=== PATIENT | male | born 1950 | race Caucasian/White ===

== ENCOUNTER → 2022-02-11 12:04 | Outpatient (CLI) | payer MEDICARE, SELFPAY ==
[2022-02-11 14:00] LABS: Add Manual Diff / Slide Review NO; Basophils Absolute Auto 0 /uL (0-100); Basophils Percent Auto 0.5 % (0-2); Eosinophils Absolute Auto 100 /uL (0-450); Eosinophils Percent Auto 1.5 % (2-4); Hematocrit 31.7 % (41-53); Hemoglobin 10.8 g/dL (13.5-17.5); Lymphocytes Absolute Auto 800 /uL (1100-4500); Lymphocytes Percent Auto 17.6 % (25-40); Mean Corpuscular HGB Conc 33.9 % (30-36); Mean Corpuscular Hemoglobin 34.7 PG (26-34); Mean Corpuscular Volume 102.3 fL (80-100); Monocytes Absolute Auto 400 /uL (0-900); Monocytes Percent Auto 7.9 % (3-14); Neutrophils Absolute Auto 3400 /uL (1500-7000); Neutrophils Percent Auto 72.5 % (50-75); Platelet Count 229 X10^3/uL (150-400); Red Cell Distribution Width 13.8 % (11.6-14.8); White Blood Cell Count 4.7 X10^3/uL (4.5-11.0)
[2022-02-11 14:56] LABS: BUN Creatinine Ratio 17.9 (6-22); Blood Urea Nitrogen 42 mg/dL (9-20); Calcium 10.1 mg/dL (8.4-10.2); Carbon Dioxide 22 mmol/L (22-32); Chloride 106 mmol/L (98-107); Estimated Glomerular Filt Rate 29 mL/min (>60); Glucose 92 mg/dL (80-110); HEMOLYSIS < 15 (0-50); Sodium 137 mmol/L (137-145)
== END ==
PROVIDERS: Referring Provider Orthopaedic Surgery Orthopaedic Surgery of the Spine; Visit Provider Orthopaedic Surgery Orthopaedic Surgery of the Spine
DX: Z01.818 Encounter for other preprocedural examination (principal); Z01.812 Encounter for preprocedural laboratory examination
CPT/HCPCS: 36415; 80048; 85025; 93005; 93010

== ENCOUNTER → 2022-03-05 10:15 | Outpatient (CLI) | payer OTHER, SELFPAY ==
[2022-03-05 11:37] LABS: COVID19 -Nasal RAPID Negative (Negative)
== END ==
PROVIDERS: Referring Provider Orthopaedic Surgery Orthopaedic Surgery of the Spine; Visit Provider Orthopaedic Surgery Orthopaedic Surgery of the Spine
DX: Z20.822 Contact with and (suspected) exposure to COVID-19 (principal)
CPT/HCPCS: 87635; C9803

== ENCOUNTER 2022-03-06 12:17 | Inpatient (IN) | payer OTHER, SELFPAY ==
[2022-02-25 09:22] VITALS: BMI 26.4
[2022-03-06] VITALS (10 sets, daily range): BP systolic 142–176; BP diastolic 68–85; PULSE 73–104; RESP 12–18; TEMP 35.7–37.6; O2SAT 95–99; BMI 26.4
--- NOTE | 2022-03-06 12:47 | PM.PREOP ---
Pre-operative Note COVID-19 COVID-19 status: Negative Result date/Date tested (Pos, Neg/Pending): 03/05/22 Criteria for continued procedure: Expected advancement of disease process, Possibility delay results in more complex future surgery or treatment, Increased loss of function, Continuing or worsening of significant or severe pain, Deterioration of the patient's condition or overall health, Delay expected to result in less-positive ultimate med/surg outcome and Untreated could increase risk of COVID contraction/morbidity/mortality Interval Note History & Physical reviewed/Exam performed by Physician: Yes Changes to H&P: No
[2022-03-06] MEDS: LACTATED RINGERS 1,000 ML 42 ML IV ×2 (13:03→14:40)
[2022-03-06] MEDS: CEFAZOLIN 2 GM/100 ML PREMIX 100 ML IV ×2 (13:32→20:06)
--- NOTE | 2022-03-06 14:06 | SUR.OPER ---
Prone on spine table, head in foam head support, padded chest and pelvic supports, gel pad at knees, lower legs supported by pillows; nipples, genitalia and toes free of pressure, arms secured on foam padded arm boards at <90 degrees abduction. Tape over blanket at thigh secured to table.
[2022-03-06] MEDS: BUPIVACAINE LIPOSOME 266 MG/20 ML VIAL INJ (14:13)
[2022-03-06] MEDS: BUPIVACAINE 0.5% W/ EPI (PF) 30 ML VIAL INJ (14:14)
--- NOTE | 2022-03-06 15:54 | DI.RAD.S_ITS ---
PROCEDURE: XR LUMBAR SPINE 2-3V INDICATIONS: L4-5 TLIF TECHNIQUE: Fluoroscopic images were obtained during an operative procedure and submitted for interpretation following the completion of the procedure. COMPARISON: [facility], CR, XR LUMBAR SPINE WITH OBLIQUES PLUS FLEXION EXTENSION, 07/03/2021, 14:56. [facility], MR, MR LUMBAR SPINE WITHOUT CONTRAST, 10/29/2021, 10:11. FINDINGS: These fluoroscopic images were performed for intraoperative localization. On these images, bilateral pedicle screws are seen at L4 and L5, with vertical fixation rods. The screws appear well placed. There is a disc spacer seen at L4-L5. Please correlate with intraoperative findings. IMPRESSION: Normal intraoperative examination. Dictated by: Sher Rice M.D. on 03/06/2022 at 15:42 Approved by: Sher Rice M.D. on 03/06/2022 at 15:43
--- NOTE | 2022-03-06 15:58 | PM.OP.1 ---
Operative Date/Time/Diagnoses Date of procedure: 03/06/22 Time of procedure: 13:00 Pre-op diagnosis: 1. L4-5 spinal stenosis with neurogenic claudication 2. Lumbar disc extrusion Post-op diagnosis: same Procedure & Clinicians Procedure: 1. L4-5 Postero-lateral and posterior interbody fusion 2. L4-5 interbody cage placement. 3. L4-5 decompressive laminectomy with bilateral facetecomies 4. L4-5 Posterior non-segmental instrumentation 5. [place] of bone marrow from iliac crest 6. Utilization of microsurgical technique and operating microscope Same procedure as scheduled: Yes Indications: Patient has been having chronic back pain and worsening lumbar radiculopathy. Patient failed multiple conservative management with worsening pain weakness and numbness in her lower extremity. Patient has been having difficulty performing activity of daily living. After discussing risks benefits of treatment options, patient elected proceed with surgery. Surgeon: Ashley Gallegos Lathe Puller: Cyndy Montgomery Click Yes if Unassisted: No Anesthesia Type: General Operative Notes Closure Type: primary Specimen(s): none sent Prosthetic devices, grafts, tissues, transplants, or devices: Globus revolve screws, Rise cage Estimated Blood Loss (mL): 50 Blood products transfused: none Procedure in detail: Patient was seen in the preoperative area. Risks and benefits of the surgery was discussed with the patient. Informed consent was obtained from the patient and placed in the chart. Surgical site was marked. Patient was taken to the operative room. General anesthesia was administered. Prophylactic antibiotic was given to the patient less than 30 min before the incision was made. Patient was placed into a prone position on the Dajuan table. Patient's back was then prepped and draped in the sterile fashion. Time-out was performed at this time. Using AP and lateral C-arm imaging the interval between L4-5 was identified and marked on patient's back. A 2 inch incision 2 in from midline was made on the right side first. The fascia was incised in line with skin incision. Globus MARS retractors was placed inside the incision and docked onto the L4 lamina. Using microsurgical technique and operating microscope, a L4 laminectomy and L4-5 facetectomy was performed using a Kerrison rongeur. The disc space at L4-5 was identified. And a total diskectomy was performed at L4-5 level. The endplates were decorticated using a rasp and shaver. The total diskectomy and decortication was performed at L4-5 level in order to to accomplish a L4-5 fusion. The local bone from the laminectomy and facetectomy was saved for local bone grafting. After the total diskectomy and decortication was completed, Trifecta bone graft material was combined with local bone that was harvested earlier. At this time, a separate skin is incision was made over the iliac crest. A Jamshidi needle was inserted into the iliac crest through a separate skin incision. 5 cc of bone marrow aspiration was obtained through the separate skin incision using a Jamshidi needle from the iliac crest. The bone marrow aspiration was combined with local bone and the Trifecta bone grafting material. The bone grafting material was placed into the L4-5 interbody space along with a expandable cage. The cage was expanded to its maximum height using the torque limiting screwdriver. At this time a mirror image incision was made on the left side. The fascia was incised in line with the skin incision. Globus MARS retractor was inserted and docked onto the L4-5 posterolateral gutter. Using the power drill, posterior-lateral decortication was performed at L4-5 level until bleeding cortical bone was identified. The remaining bone grafting material was placed into the L4-5 posterior lateral gutter he order to accomplish posterolateral fusion at the L4-5 level. A laminectomy facetectomy was also performed from the left side for additional decompression. The epidural space and bilateral neural foramen was fully decompressed at the L4-5 level after the procedure is completed. Using the double C-arm technique, pedicle screws were placed into the L4-5 pedicles bilaterally. This was done by placing the Jamshidi needle into the pedicles, then placing the guidewires over the Jamshidi needle, and finally placing the cannulated screws over the guidewires bilaterally. After the pedicle screws were placed, 2 titanium rods was locked into the heads of the pedicle screws using locking caps and torque limiting screwdriver. After all the hardware was placed, and confirmed with AP and lateral C-arm imaging, the wound was then irrigated with sterile normal saline and packed with Ray-Massiel gauze for 3 min to accomplish hemostasis. After the gauze was removed the deep fascia was closed with #1 Vicryl suture. The subcutaneous layer was closed with 2-0 Vicryl. The skin was closed with skin nathanael. Patient tolerated the procedure well. There were no complications. Complications: none Post-operative Condition: stable Disposition: PACU Plan for aftercare: Admit to inpatient hospital
[2022-03-06] MEDS: ACETAMINOPHEN 325 MG TABLET 650 MG PO (16:54)
[2022-03-06] MEDS: HYDROMORPHONE 0.5 MG INJ IV ×2 (16:54→20:07)
[2022-03-06] MEDS: hydrOXYzine pamoate 25 MG CAPSULE PO (16:55)
[2022-03-06] MEDS: DOCUSATE 100 MG CAPSULE PO (20:07)
[2022-03-06] MEDS: SENNOSIDES 8.6 MG TABLET 17.2 MG PO (20:07)
[2022-03-06] MEDS: OXYCODONE IR 5 MG TABLET 10 MG PO (23:39)
[2022-03-07] MEDS: OXYCODONE IR 5 MG TABLET 10 MG PO ×5 (02:53→20:12)
[2022-03-07 02:58] VITALS: BP 154/78; PULSE 93; RESP 17; TEMP 37.2; O2SAT 93
--- NOTE | 2022-03-07 04:16 | PC.NURSE ---
Pt is AxOx4, needs 1 person assistance and cooperative. VSS, pt c/o pain on his back and recieved PRN Dilaudid 0.5mg IV with good effect. Pt also recieved PRN Oxy 10mg x1 with good effect. Pt is voiding well and clear, yellow urine output. Drssing on his back is C/D/I. No other changes. Continue monitor.
[2022-03-07] MEDS: CEFAZOLIN 2 GM/100 ML PREMIX 100 ML IV (05:14)
--- NOTE | 2022-03-07 07:21 | P.DS_ITS ---
History of Present Illness History of Present Illness Date Patient Seen: 03/07/22 Time Patient Seen: 07:21 Chief complaint: INPT Narrative: Operative Date/Time/Diagnoses Date of procedure: 03/06/22 Time of procedure: 13:00 Pre-op diagnosis: 1. L4-5 spinal stenosis with neurogenic claudication 2. Lumbar disc extrusion Post-op diagnosis: same Procedure & Clinicians Procedure: 1. L4-5 Postero-lateral and posterior interbody fusion 2. L4-5 interbody cage placement. 3. L4-5 decompressive laminectomy with bilateral facetecomies 4. L4-5 Posterior non-segmental instrumentation 5. [place] of bone marrow from iliac crest 6. Utilization of microsurgical technique and operating microscope Same procedure as scheduled: Yes Indications: Patient has been having chronic back pain and worsening lumbar radiculopathy. Patient failed multiple conservative management with worsening pain weakness and numbness in her lower extremity.? Patient has been having difficulty performing activity of daily living.? After discussing risks benefits of treatment options, patient elected proceed with surgery. Surgeon: Ashley Gallegos Thermostatic Controls Supervisor: Cyndy Montgomery Click Yes if Unassisted: No Anesthesia Type: General Operative Notes Closure Type: primary Specimen(s): none sent Prosthetic devices, grafts, tissues, transplants, or devices: Globus revolve screws, Rise cage Estimated Blood Loss (mL): 50 Blood products transfused: none Discharge Providers Provider Date of admission: 03/06/22 12:17 Discharge Date: 03/07/22 Consults: 03/06/22 16:26 Consult to Occupational Therapy Evaluate & Treat Comment: Physician Instructions: Evaluate and treat Consult to Physical Therapy Evaluate & Treat Comment: Physician Instructions: Evaluate and Treat Discharge provider: Cyndy Montgomery PA-C Summary Hospital Course Discharge Diagnosis: Spinal stenosis w/ neurogenic claudication and lumbar disc extrusion, s/p lumbar fusion Hospital Course: Mr Power'patience hospital course was unremarkable. On the morning of POD# 1 he had not yet been out of bed or eaten since surgery, but he was voiding without difficulty. He complained of low back pain in a band-like distribution from his incisions but denied leg pain. Exam Vital Signs (past 8 hours): - 03/07/22 02:58 Temperature 99 F Pulse Rate 93 H Respiratory Rate 17 Blood Pressure 154/78 H Pulse Oximetry 93 Oxygen Flow Rate 0 Oxygen Delivery Method Room Air Oxygen Flow Rate 0 Narrative Exam Narrative: 5/5 strength in hip flexors, quadriceps, hamstrings, DF, PF, EHL bilaterally. Sensation to light touch intact throughout BLE. Calves soft, compressible, nontender and without palpable cords or masses. Dressing placed intraoperatively is CDI. [facility] Medical History (Updated 02/26/22 @ 10:42 by Humaira Garza RN) Anemia CKD (chronic kidney disease), stage III Gouty arthritis HLD (hyperlipidemia) HTN (hypertension) Pre-diabetes Proteinuria Sciatica Spinal stenosis Surgical History (Updated 03/07/22 @ 07:24 by Cyndy Montgomery PA-C) H/O: vasectomy History of open reduction and internal fixation (ORIF) procedure (~2015) History of urologic surgery (11/20/21) Hx of tonsillectomy S/P TURP (~2018) Social History household members: significant other and none Smoking Status: Never smoker alcohol intake: current Discharge Assessment & Plan Assessment and Plan Assessment: Spinal stenosis w/ neurogenic claudication and lumbar disc extrusion, s/p lumbar fusion Plan of Treatment: Discharge home after PT today if PT agrees and pt meets d/c criteria (pain control w/ oral meds, VSS, voiding independently, no N/V, etc). F/u as scheduled in 2 weeks. Discharge Plan Discharge Plan Patient Disposition: Home Discharge orders & Medications Prescriptions: New acetaminophen 325 mg Tablet 650 mg PO Q6HR PRN (Reason: Pain, Mild (1-3)) Qty: 240 0RF docusate sodium 100 mg Capsule 100 mg PO BID PRN (Reason: constipation) Qty: 60 1RF hydroxyzine pamoate 25 mg Capsule 25 mg PO Q4HR PRN (Reason: muscle spasm) Qty: 120 0RF oxycodone 5 mg Tablet 5 mg PO Q4H PRN (Reason: Pain, Severe (7-10)) Qty: 60 0RF Rx Instructions: 1-2 tabs (5-10mg) q 4 hrs PRN severe postop pain Continued amlodipine 10 MG tablet 2.5 mg PO QDAY Qty: 0 allopurinol 300 MG tablet 300 mg PO QDAY Qty: 0 multivitamin [Multiple Vitamins] 1 EACH tablet 1 tab PO QDAY Qty: 0 aspirin 81 MG tablet,delayed release (DR/EC) 81 mg PO QMWF Qty: 0 atorvastatin 20 mg Tablet 20 mg PO DAILY lisinopril 5 mg Tablet 5 mg PO DAILY cinacalcet [Sensipar] 30 mg Tablet 30 mg PO DAILY ferrous gluconate 324 mg (38 mg iron) Tablet 648 mg PO DAILY calcitriol 0.25 mcg Capsule 0.25 mcg PO DAILY Follow up/Referrals: Ashley Gallegos MD [Physician] - As previously scheduled (Follow up with Chiqui Brito PA-C, on 03/20/2022 @ 1:40 pm at [facility] office in [place].) Diet/Activity/Treatments Diet: Diet as Tolerated Activity: No deep bending or twisting at the waist. No lifting more than 10 pounds. Cold/Heat Therapy: Heating pad to low back as needed for pain. Skin/Wound/Dressing Care Report to your healthcare provider any signs of infection, such as:: chills, fever, night sweats, unusual drainage and unusual redness Dressing: May shower; keep dressing as dry as possible. If dressing becomes wet or soiled inside, may remove and replace with clean, dry gauze. No bathing or otherwise soaking incisions. Do not place any creams, lotions, or ointments on incisions. Visit Report/Discharge Packet Instructions: DI for Prescription Opioid Use, DI for Transforaminal Lumbar Interbody Fusion Stand Alone Forms: Surgery Discharge
[2022-03-07 10:00] VITALS: BP 127/62; PULSE 65; RESP 16; TEMP 36.7
[2022-03-07] MEDS: MULTIVITAMIN 1 TABLET 1 TAB PO (10:01)
[2022-03-07] MEDS: DOCUSATE 100 MG CAPSULE PO ×2 (10:01→20:12)
[2022-03-07] MEDS: FERROUS SULFATE 325 MG TABLET 650 MG PO (10:01)
[2022-03-07] MEDS: allopurinoL 300 MG TABLET PO (10:01)
[2022-03-07] MEDS: ATORVASTATIN 20 MG TABLET PO (10:01)
[2022-03-07 10:03] VITALS: BP 115/46; PULSE 78
--- NOTE | 2022-03-07 10:12 | PT.IIE ---
Current Diagnoses Other spondylosis with radiculopathy, lumbar region (03/06/22) Spinal stenosis, lumbar region with neurogenic claudication (03/06/22) Arthrodesis status (03/06/22) Surgery Performed Operation Date: 03/06/22 13:45 Actual Procedures p L4-5 TLIF - Ashley Gallegos MD Surgical History (Last Updated 02/25/22 @ 10:18 by Humaira Garza, RN) H/O: vasectomy History of open reduction and internal fixation (ORIF) procedure (~2015) History of urologic surgery (11/20/21) Hx of tonsillectomy S/P TURP (~2018) Medical History (Last Updated 02/26/22 @ 10:42 by Humaira Garza, RN) Anemia CKD (chronic kidney disease), stage III Gouty arthritis HLD (hyperlipidemia) HTN (hypertension) Pre-diabetes Proteinuria Sciatica Spinal stenosis Physical Therapy Inpatient Evaluation/Re-Eval M1 PT/OT-IP Prior Functional Status Start: 03/07/22 10:03 Freq: NEEDED Status: Active Protocol: Document 03/07/22 10:03 [facility] (Rec: 03/07/22 10:12 [facility] [id number]) Medical Review Prior Functional Status Medical History Reviewed Yes Diet/Fluid Consistency Regular Communication WNL Mobility and Gait indepw/o AD Activities of Daily Living and IADL's indep w/ADLs typically helps w /cooking and cleaning ; drives Social History Household Members significant other,none Living Arrangements House Number of Floors (Floors) One Floor Number of Stairs To Enter/Railing? 1STE platform Home Environment High Toilet,Walk in Shower Home Equipment Front Wheel Walker,Shower Seat without Backrest,Grab Bars In Shower Employment Status Retired Additional Social History Comment GF retired and able to help; GF [facility] and can get him anyhing he needs M2 PT-IP Current Condition Start: 03/07/22 10:03 Freq: NEEDED Status: Active Protocol: Document 03/07/22 10:03 [facility] (Rec: 03/07/22 10:12 [facility] [id number]) Physical Therapy Current Condition Current Condition Evaluation Date 03/07/22 Treatment Diagnosis TLIF L4-5 M3 PT-IP Subjective Start: 03/07/22 10:03 Freq: NEEDED Status: Active Protocol: Document 03/07/22 10:03 [facility] (Rec: 03/07/22 10:12 [facility] [id number]) Subjective Physical Therapy Visit Type Type Initial Evaluation Visit Start Time 09:25 Visit Stop Time 10:00 Total Visit Minutes 35 Number of HEAD OF IT Visits 0 Physical Therapy Visit Comments Patient Goals TO go home but doesn't feel ready Therapy Pain Assessment Pain Present Pain Present Pain Reported Location Bilateral Leg Pain Management Techniques Apply Cold,Re-positioning, Timing of Activity with Medications M4 PT-IP Mobility and Gait Start: 03/07/22 10:03 Freq: NEEDED Status: Active Protocol: Document 03/07/22 10:03 [facility] (Rec: 03/07/22 10:12 [facility] [id number]) PT-Bed Mobility Assessment Rolling Type of Rolling Log Rolling,Roll to Right Level of Assist Moderate Assistance Supine to Sit Supine to Sit Maximum Assistance,Bedrails Scooting Scooting to Edge of Bed Standby Assistance PT-Transfer Assessment Sit to and From Stand Sit to and from Stand Minimal Assistance,Use of Upper Extremities Equipment Transfer Assistive Device Bed Rail,Gait Belt,Front Wheeled Walker Orthotic/Prosthetic Devices or Brace: No Transfers Transfer Destination Chair Transfer Technique Stand Step Pivot Transfer Ability Level of Assist Minimal Assistance Gait Assessment Comments Gait Comments unable today-pt reported UEs felt too weak Stair Climbing Assessment Comments Stair Climbing Comments unable today PT-Balance Assessment Sitting Balance and Reactions Static Sitting Balance Ability Good Dynamic Sitting Balance Ability Good Standing Balance and Reactions Static Standing Balance Ability Fair Dynamic Standing Balance Ability Fair Device Used FWW M5 PT-IP Objective Assessments Start: 03/07/22 10:03 Freq: NEEDED Status: Active Protocol: Document 03/07/22 10:03 [facility] (Rec: 03/07/22 10:12 [facility] [id number]) Orientation Orientation/Cognition Level of Alertness Alert Language Function Ability No Deficits Noted Safety Awareness Understands Safety Issues Memory Description No Deficits Noted Gross Range of Motion Lower Extremity ROM Assessment Within Functional Limits Strength Lower Extremity Strength Hip grossly 3+/5 Knee grossly 4-/5 Ankle 4/5 grossly M6 PT-IP Treatment Start: 03/07/22 10:03 Freq: NEEDED Status: Active Protocol: Document 03/07/22 10:03 [facility] (Rec: 03/07/22 10:12 [facility] [id number]) Physical Therapy Treatment Education Education Provided Precautions,Post-Op Packet, Safety M7 PT-IP Assessment and Plan Start: 03/07/22 10:03 Freq: NEEDED Status: Active Protocol: Document 03/07/22 10:03 [facility] (Rec: 03/07/22 10:12 [facility] [id number]) PT Summary Assessment and Plan Potential Rehabilitation Potential Good Status of Condition at Evaluation Evolving Summary Impairments Pain,ROM,Strength,Balance,Bed Mobility,Transfers,Gait, Activity Tolerance Assessment Summary Pt presents day 1 s/p L4-5 TLIF w/significant pain that is limiting his mobility. He felt weak in his arms when trying to use FWW and only felt able to transfer this AM. He required assistance w/all mobility at this time and slow movement d/t pain. As pain gets more under control and pt cont to work w/PT to work on mechanics and strength, pt will likely improve enough to safely go home. Goals Bed Mobility Goal Independent Transfer Goal Independent Gait Goal Independent,Front Wheel Walker Gait Distance 150ft Other Goals up/down 1 platform step w/FWW SBA Days to Meet Goals 5 Frequency of Treatment Frequency Of Treatment Twice a Day Treatment Plan Physical Therapy Treatment Plan Bed Mobility Training,Transfer Training,Gait Training, Therapeutic Exercise,Balance Retraining,Post Op Education, Discharge Planning, Neuromuscular Re-ed Precautions Lumbar Precautions Log Roll,No Twisting,Limit Bending,Lifting Restriction of 10 lbs,Gait Belt above Incisional Area Weight Bearing Status Weight Bearing Status Weight Bear as Tolerated Recommendations To Nursing Amount of Assist Needed 1 Person Assist Discharge Recommendations PT Discharge Recommendations Home with Assistance, Outpatient PT Transportation Needs at Discharge Private Vehicle
--- NOTE | 2022-03-07 11:05 | CM.DANOTE ---
DCP Assessment: Payor confirmed: [employer] PCP confirmed: Thierry Kinney @ [facility] Pt is a 72 y.o. M who presented to the hospital for a planned back surgery with Dr. Gallegos. Pt brought up to the AC unit for further management and evaluation of surgical procedure. DCP met with pt this morning to discuss discharge needs. Pt sitting up in chair eating with significant other at the bedside. DCP introduced self and role. Pt is independent at baseline. Pt lives in [place] in a single story home. His significant other lives in [place] but is staying with him while he recovers from surgery. Pt denies DME use and still drives own POV. Pt requesting to stay another night due to pain. PT also suggesting pt would benefit from another night due to mobility. Otherwise, pt denies any discharge needs. White board updated and instructed to call. Pt and pt s/o thankful for discussion. P: Anticipate discharge home via s/o POV tomorrow. Pt needing better pain management per pt, RN, and PT. DCP to continue to follow. Latesha Bailey RN/ARCHANAP Discharge Planning/Care Management Advanced directive, confirm from FAMILY Start: 03/06/22 21:03 Freq: Q24H Status: Active Protocol: Document 03/06/22 21:03 OW (Rec: 03/06/22 21:11 OW [id number]) Advance Directive, confirm on record Time 21:11 Person contacted no Copy received No CM Discharge Assessment Start: 03/07/22 08:16 Freq: Status: Active Protocol: Document 03/07/22 11:04 CAROLE (Rec: 03/07/22 11:04 AJ [id number]) Discharge Planning Assessment Assigned Airplane Dispatcher Latesha Bailey RN/KI Advance Directives? Yes Advance Directives on File No History Provided By Patient Prior Living Arrangements House Household Members significant other,none Type of transporation used prior to Drives own vehicle admit Independent with ADL's Yes Is patient alert and oriented? Yes Caregiver for Another No Discharge Plan Home Transportation Arrangement S/O POV Referrals Initiated None needed Whiteboard Updated in Patient Room with Yes name and ext. # of Airplane Dispatcher Comment Instructed to call Review Status In Process Please Provide Date Initial DC 03/07/22 Assessment Was Performed Next Review Type Continued Stay Review Pre-Anesthesia Assessment Start: 02/25/22 09:22 Freq: Status: Active Protocol: Document 02/25/22 09:22 [facility] (Rec: 02/25/22 10:33 CAB [id number]) Pre-Anesthesia Assessment Preferred Name Familia Patient Information Reviewed Via Phone Assessment Assessment Completed With Patient Diagnostic Results BMP/CMP,CBC,EKG Comment Labs/ECG @ 02/11/22, COVID screen @ 03/04/22 Primary Care Provider Janie Salinas Seen Specialist in Last 12 Months Yes Specialist Seen Cream Hauler,Orthopedist, Urologist Comment Nephrology visit 01/09/22 scanned Primary Language Occitan Counter Server Required No Height 177.8 cm Weight 83.461 kg Body Mass Index (BMI) 26.4 Hearing Ability Normal Visual Assist Contacts,Glasses Dentition Type Teeth, Natural Present Barriers to Learning None Hx Anesthesia Reactions No Hx Family Anesthesia Reaction No Hx Malignant Hyperthermia No Hx Blood Transfusions Yes: At RH baby Anesthesia Review Requested No alcohol intake current alcohol intake frequency 0-2 drinks per day Smoking Status Never smoker Substance Use Type does not use Pain Present Pain Reported Musculoskeletal Symptoms Abnormal Gait,Back Pain, Difficulty Walking,Muscle Weakness,Radiating Pain into Limb History of Falling (Recent or History of No ) Patient is completely paralyzed or No completely immobile Mental Status Oriented to own ability Is patient on oxygen? No Does patient have CH/SOB No Hx Sleep Apnea No Currently Taking a Beta Marlen No Can You Climb a Flight of Stairs Without Yes SOB Hx Chest Pain No Hx SOB No Hx Syncope or Dizziness No Anti-Coagulant Therapy No Has a Operator Bearer Systems No Cardiac Testing No Hx Pacemaker/ICD No Pacemaker Rep Required? No Cardiac Clearance Received Not Applicable Diet Type At Home Regular Dysphagia No Gastrointestinal Symptoms None Chronic UTI No Urinary Catheter Present No Hx Urinary Self Catheterization No Diabetes No: Pre-diabetes Hx Drug Resistant Organism No Presence of External or Internal Medical Yes: Left humerus Devices Have you had any close contact with No someone diagnosed with COVID-19? Received a COVID vaccine? Yes Received all doses? Yes Marital Status / Lives With significant other,none Current Living Arrangements House Number of Floors (Floors) One Floor Support System Significant Other Does the Patient Have Assistance After Yes Surgery Patient Discharge Plan Description Return Home Comment Pt advised overnight length of stay per surgeon Feels Safe in Current Environment Yes Been Physically Hurt or Threatened By a No Person in Current Environment Do you have thoughts of harming yourself None or others? Are you currently considering suicide? No Do you have a plan to hurt yourself or No Plan others? Do You Have Any Spiritual Beliefs That No May Affect Your HC Choices? Do You Have Any Cultural Practices That No May Affect Your HC Choices? Comment Yazidism Who Can We Speak to About Patient's Care Family, friends Identifying Code for Release of Patient Declines to issue Information Health Care Proxy/Next of Kin Robin (daughter) Health Care Proxy Emergency Contact Name Malaika (S.O.) Emergency Contact Advance Directives? Yes Advance Directives on File No Power of Theater Usher Yes Power of Theater Usher Name Robin (daughter) Power of Theater Usher PAC Instructions Durable medical equipment, Medications to take/avoid, Nasal antibiotic,No ETOH/ petroleum product on skin DOS, NPO,Post-op transportation,Pre -surgical wash,Sensory aids, Sturdy shoes/comfortable clothes,Do not bring valuables and remove jewelry
--- NOTE | 2022-03-07 15:04 | PT.IPTN ---
Current Diagnoses Other spondylosis with radiculopathy, lumbar region (03/06/22) Spinal stenosis, lumbar region with neurogenic claudication (03/06/22) Arthrodesis status (03/06/22) Surgery Performed Operation Date: 03/06/22 13:45 Actual Procedures p L4-5 TLIF - Ashley Gallegos MD Physical Therapy Treatment Note M2 PT-IP Current Condition Start: 03/07/22 10:03 Freq: NEEDED Status: Active Protocol: Document 03/07/22 10:03 [facility] (Rec: 03/07/22 10:12 [facility] [id number]) Physical Therapy Current Condition Current Condition Evaluation Date 03/07/22 Treatment Diagnosis TLIF L4-5 M3 PT-IP Subjective Start: 03/07/22 10:03 Freq: NEEDED Status: Active Protocol: Document 03/07/22 14:35 LJ (Rec: 03/07/22 15:02 LJ [id number]) Subjective Physical Therapy Visit Type Type Treatment Note Visit Start Time 13:51 Visit Stop Time 14:32 Total Visit Minutes 41 Number of CLAIM MANAGER Visits 1 Physical Therapy Visit Comments Patient Goals To go home but doesn't feel ready Therapy Pain Assessment Pain Present Pain Present Pain Reported Location Bilateral Leg Pain Management Techniques Apply Cold,Re-positioning, Timing of Activity with Medications M4 PT-IP Mobility and Gait Start: 03/07/22 10:03 Freq: NEEDED Status: Active Protocol: Document 03/07/22 14:35 LJ (Rec: 03/07/22 15:02 LJ [id number]) PT-Bed Mobility Assessment Rolling Type of Rolling Log Rolling,Roll to Right Level of Assist Standby Assistance Supine to Sit Supine to Sit Standby Assistance Sit to Supine Sit to Supine Standby Assistance Scooting Scooting to Edge of Bed Standby Assistance PT-Transfer Assessment Sit to and From Stand Sit to and from Stand Standby Assistance,Use of Upper Extremities Equipment Transfer Assistive Device Gait Belt,Front Wheeled Walker Orthotic/Prosthetic Devices or Brace: No Transfers Transfer Destination Bed,Toilet Transfer Technique ambulated Transfer Ability Level of Assist Standby Assistance,Use of Upper Extremities Comments Mobility Comments Pt moving slowly and cautiously asking for cues on how to move safely to reduce pain. With bed flat pt able to complete logroll to right SBA . Pt completed SL to sit on side of bed with SBA and cueing. Completed sit<>stand using UEs on middle rung of FWW while therapist braced it. Good adherance to precautions with hip hinging. Pt ambulated in room and hallway (see gait) then returned to bed performing all transfers and bed mobility SBA and max cuing. Pt positioned self in bed and was left with all needs within reach. Gait Assessment Gait Gait Assistance Required: Standby Assistance,Contact Guard Assist Distance (Feet) 100 Assistive Devices Assistive Device Gait Belt,Front Wheeled Walker Gait Deviations General Gait Pattern Decreased Stride Length, Decreased Feet Clearance, Narrow Based Gait Factors Limiting Gait Function Factors Limiting Gait Function Decreased Activity Tolerance, Decreased Sensation,Decreased Strength,Limited Range of Motion,Pain,Poor Balance Comments Gait Comments Pt ambulated to toilet to void . Completed sit<>stand pushing up with UEs using middle rung of braced FWW. Pt then ambulated out in hallway to nurse's station CGA and back to room. Pt completed all bed mobility SBA with max cueing. Pt c/o legs feeling heavy and head somewhat dizzy which cut shoort the gait distance. Stair Climbing Assessment Comments Stair Climbing Comments unable today M5 PT-IP Objective Assessments Start: 03/07/22 10:03 Freq: NEEDED Status: Active Protocol: Document 03/07/22 10:03 [facility] (Rec: 03/07/22 10:12 [facility] [id number]) Orientation Orientation/Cognition Level of Alertness Alert Language Function Ability No Deficits Noted Safety Awareness Understands Safety Issues Memory Description No Deficits Noted Gross Range of Motion Lower Extremity ROM Assessment Within Functional Limits Strength Lower Extremity Strength Hip grossly 3+/5 Knee grossly 4-/5 Ankle 4/5 grossly M6 PT-IP Treatment Start: 03/07/22 10:03 Freq: NEEDED Status: Active Protocol: Document 03/07/22 14:35 MARCIA (Rec: 03/07/22 15:02 LJ [id number]) Physical Therapy Treatment Exercises Exercises Ankle Pumps,Gluteal Sets Education Education Provided Precautions,Post-Op Packet, Safety Other Treatments Other Treatment Performed weight shifting, marching prior to ambulation M7 PT-IP Assessment and Plan Start: 03/07/22 10:03 Freq: NEEDED Status: Active Protocol: Document 03/07/22 14:35 LJ (Rec: 03/07/22 15:02 LJ [id number]) PT Summary Assessment and Plan Potential Rehabilitation Potential Good Status of Condition at Evaluation Evolving Summary Impairments Pain,ROM,Strength,Balance,Bed Mobility,Transfers,Gait, Activity Tolerance Assessment Summary Pt given pain meds and willing to work with PT. He is SBA for all mobility and transfers and CGA-SBA for gait. Unable to perform stair training due to dizziness and fatigue. He is moving much better and anticipate being able to DC home with assistance from girlfriend tomorrow after stair training and further gait training. Goals Bed Mobility Goal Independent Transfer Goal Independent Gait Goal Independent,Front Wheel Walker Gait Distance 150ft Other Goals up/down 1 platform step w/FWW SBA Days to Meet Goals 5 Frequency of Treatment Frequency Of Treatment Twice a Day Treatment Plan Physical Therapy Treatment Plan Bed Mobility Training,Transfer Training,Gait Training, Therapeutic Exercise,Balance Retraining,Post Op Education, Discharge Planning, Neuromuscular Re-ed Precautions Lumbar Precautions Log Roll,No Twisting,Limit Bending,Lifting Restriction of 10 lbs,Gait Belt above Incisional Area Weight Bearing Status Weight Bearing Status Weight Bear as Tolerated Recommendations To Nursing Amount of Assist Needed 1 Person Assist Discharge Recommendations PT Discharge Recommendations Home with Assistance, Outpatient PT Transportation Needs at Discharge Private Vehicle
--- NOTE | 2022-03-07 15:36 | OT.IP.EVAL ---
Current Diagnoses Other spondylosis with radiculopathy, lumbar region (03/06/22) Spinal stenosis, lumbar region with neurogenic claudication (03/06/22) Arthrodesis status (03/06/22) Surgery Performed Operation Date: 03/06/22 13:45 Actual Procedures p L4-5 TLIF - Ashley Gallegos MD Past Medical History (Last Updated 02/26/22 @ 10:42 by Humaira Garza, RN) Anemia CKD (chronic kidney disease), stage III Gouty arthritis HLD (hyperlipidemia) HTN (hypertension) Pre-diabetes Proteinuria Sciatica Spinal stenosis Surgical History (Last Updated 02/25/22 @ 10:18 by Humaira Garza RN) H/O: vasectomy History of open reduction and internal fixation (ORIF) procedure (~2015) History of urologic surgery (11/20/21) Hx of tonsillectomy S/P TURP (~2018) Occupational Therapy Inpatient Evaluation/Re-Eval M1 PT/OT-IP Prior Functional Status Start: 03/07/22 10:03 Freq: NEEDED Status: Active Protocol: Document 03/07/22 16:10 [facility] (Rec: 03/07/22 16:46 [facility] [id number]) Medical Review Prior Functional Status Medical History Reviewed Yes Diet/Fluid Consistency Regular Communication WNL Mobility and Gait indepw/o AD Activities of Daily Living and IADL's indep w/ADLs typically helps w /cooking and cleaning ; drives Social History Household Members significant other,none Living Arrangements House Number of Floors (Floors) One Floor Number of Stairs To Enter/Railing? 1STE platform Home Environment High Toilet,Walk in Shower Home Equipment Front Wheel Walker,Shower Seat without Backrest,Grab Bars In Shower Employment Status Retired Additional Social History Comment GF retired and able to help; GF plans to go to [employer] today and can get him anything he needs M2 OT-IP Current Condition Start: 03/07/22 16:09 Freq: Status: Active Protocol: Document 03/07/22 16:10 [facility] (Rec: 03/07/22 16:46 [facility] [id number]) Occupational Therapy Current Condition Current Condition Evaluation Date 03/07/22 Treatment Diagnosis S/p L4-5 TLIF Diagnosis Onset Date 03/06/22 Post Operative Precautions Lumbar Precautions Log Roll,No Twisting,Limit Bending,Lifting Restriction of 10 lbs,Gait Belt above Incisional Area M3 OT- IP Subjective and Pain Start: 03/07/22 16:09 Freq: Status: Active Protocol: Document 03/07/22 16:10 [facility] (Rec: 03/07/22 16:46 [facility] [id number]) OT- Subjective Occupational Therapy Visit Type Type Initial Evaluation Visit Start Time 14:55 Visit Stop Time 15:36 Total Visit Minutes 41 Occupational Therapy Visit Comments Patient Comments Pt agreed to get up. Patient/Caregiver Goals Pt wanting to go home. OT Pain Assessment Pain When Pain Assessed During Mobility Pain Present Pain Present Pain Reported Location Back Intensity 6 M4 OT- IP ADL's Start: 03/07/22 16:09 Freq: Status: Active Protocol: Document 03/07/22 16:10 [facility] (Rec: 03/07/22 16:46 [facility] [id number]) OT [id number] Comments OT Self-Feeding Comments Not at meal time. OT ADL-Grooming General Evaluation Grooming Ability Independent Areas Needing Assistance Retrieving/Set-up of Grooming Items Comments OT Grooming Comments Pt able to do while standing at the sink and needing to use his hand on the sink for support. OT ADL-Oral Care General Eval Oral Care Ability Independent Comments Oral Care Comments Educated pt to spit into a cup versus hinge at his hips in order to best follow his back precautions. OT ADL-Dressing General Eval Lower Body Dressing Ability Standby Assistance,Maximum Assistance Areas Needing Assistance Socks Comments OT Dressing Comments Able to show pt use of sock aid and street worker, pt able to practice and show good safety. OT ADL-Toileting Comments OT Toileting Comments Pt able to appropriately lean to wipe while seated on the toilet. OT ADL-Bathing Comments OT Bathing Comments Pt states shower too small and will probably use his tub/ shower and that a tub bench would probably be safer for pt to use. HIs Life [facility] M5 OT- IP IADL's Start: 03/07/22 16:09 Freq: Status: Active Protocol: Document 03/07/22 16:10 [facility] (Rec: 03/07/22 16:46 [facility] [id number]) OT-Instrumental Activities of Daily Living Home Safety Awareness Home Safety Comments Pt a little groggy and needing step by step commands to follow at this time. Pt will need assist for needs at home. M6 OT- IP Functional Cognition Start: 03/07/22 16:09 Freq: Status: Active Protocol: Document 03/07/22 16:10 [facility] (Rec: 03/07/22 16:46 [facility] [id number]) Cognitive Factors Limiting Selfcare Function Cognitive Ability Level of Alertness Alert,Drowsy Patient Orientation Name,Place,Situation Attention Span Ability Capable of Focused Attention, Capable of Sustained Attention Ability to Follow Commands Able to Follow One Step Commands Cognitive Comments Cognitive Assessment Comments Pt able to follow commands but at the end of the session needing more step by step commands to follow. Pt asking whether to lift or roll the FWW when walking. Pt needing cues to push up from the bed to stand as pt wanting to use the FWW to push down on and heavily relying on his arms when coming to stand. Pt asking if it is okay to use his legs to stand. Encouraged pt to use his legs and be sure to tighten his legs when coming to stand. OT- Vision and Hearing OT- Hearing Assessment OT- Hearing Assessment WFL M7 OT- IP Mobility and Balance Start: 03/07/22 16:09 Freq: Status: Active Protocol: Document 03/07/22 16:10 [facility] (Rec: 03/07/22 16:46 [facility] [id number]) OT- Bed Mobility Assessment Supine to Sit Supine to Sit Assist Standby Assistance Sit to Supine Sit to Supine Assist Standby Assistance OT-Transfer Assessment Sit to and From Stand Sit to and from Stand Standby Assistance,Minimal Assistance Transfers Transfer Ability Standby Assistance,Contact Guard Assistance Technique Transfer Destination Bed,Chair Transfer Technique Stand Step Pivot Devices Transfer Assistive Devices Gait Belt,Front Wheeled Walker Comments Mobility Comments Pt LESVIA to stand and CGA to SBA with FWW. Pt heaviily relies on his arms on the FWW to move. OT- Balance Assessment Sitting Balance and Reactions Static Sitting Balance Ability Normal Dynamic Sitting Balance Ability Good Standing Balance and Reactions Static Standing Balance Ability Fair Dynamic Standing Balance Ability Fair M8 OT- IP Objective Assessments Start: 03/07/22 16:09 Freq: Status: Active Protocol: Document 03/07/22 16:10 [facility] (Rec: 03/07/22 16:46 [facility] [id number]) OT Gross Range of Motion Upper Extremity Range of Motion Assessment Within Functional Limits M9 OT- IP Assessment and Plan Start: 03/07/22 16:09 Freq: Status: Active Protocol: Document 03/07/22 16:10 [facility] (Rec: 03/07/22 16:46 [facility] [id number]) OT Summary Assessment and Plan Potential Rehabilitation Potential Good Analytic Complexity at Evaluation Low Summary OT Impairments Pain,Balance,Functional Cognition,Functional Mobility, Dressing,Toileting,Bathing, Toilet Transfers,Shower Transfers,Activity Tolerance Progress Towards Goals Progressing Toward Goals Assessment Summary Pt low complexity and main barrier is a step and needing heavy use of his BUE on the FWW to move at this time. Pt able to practice LB dressing equipment with OT and his significant other to get a tub bench for showering needs. Pt to go home with assist when medically stable. Goals Grooming Goal Independent Dressing Goal Independent Toileting Goal Independent Bathing Goal Standby Assistance Toilet Transfer Goal Independent Shower Transfer Goal Independent Days to Meet Goals 7 Frequency of Treatment Frequency Of Treatment Once a Day Treatment Plan OT Treatment Plan ADL Training,Functional Mobility,Patient/Family Education,Discharge Planning Discharge Recommendations OT Discharge Recommendations Home with 29/09 Assist Available Transportation Needs at Discharge Private Vehicle
[2022-03-07 18:26] VITALS: BP 158/74; PULSE 106; RESP 16; TEMP 37.1; O2SAT 96
[2022-03-07] MEDS: SENNOSIDES 8.6 MG TABLET 17.2 MG PO (20:11)
[2022-03-08] MEDS: OXYCODONE IR 5 MG TABLET 10 MG PO ×3 (01:19→10:17)
--- NOTE | 2022-03-08 03:08 | PC.NURSE ---
Pt is AxOx4, independent with FWW to the bathroom. Pt is eating and voiding well. Dressing on back C/D/I. Pt c/o back pain and recieved PRN PO Oxy 10 x2 with good effect. No other changes. Pt slept well. Continue monitor.
[2022-03-08 03:16] VITALS: BP 140/80; PULSE 83; RESP 18; TEMP 36.9; O2SAT 97
[2022-03-08 08:00] VITALS: BP 156/83; PULSE 110; RESP 18; TEMP 37.7; O2SAT 92
--- NOTE | 2022-03-08 08:47 | PM.PNPO.1 ---
Subjective Subjective Date Patient Seen: 03/08/22 Time Patient Seen: 08:47 Interval history: Received a call from pts RN yesterday afternoon stating that PT wanted to work with pt further today; discharge held. Pt states today that he is feeling much better but legs feel 'heavy.' Has been OOB on his own multiple times, eating and voiding without difficulty. Pain controlled with oral medication. Exam Vital Signs (past 8 hours): - 03/08/22 03:16 Temperature 98.4 F Pulse Rate 83 Respiratory Rate 18 Blood Pressure 140/80 Pulse Oximetry 97 Oxygen Delivery Method Room Air Oxygen Flow Rate 0 Narrative Exam Narrative: 5/5 strength in hip flexors, quadriceps, hamstrings, DF, PF, EHL bilaterally. Sensation to light touch intact in BLE. Calves soft, compressible, nontender and without palpable cords or masses. Low back dressing CDI. [facility] Medical History (Updated 02/26/22 @ 10:42 by Humaira Garza RN) Anemia CKD (chronic kidney disease), stage III Gouty arthritis HLD (hyperlipidemia) HTN (hypertension) Pre-diabetes Proteinuria Sciatica Spinal stenosis Surgical History (Updated 03/07/22 @ 07:24 by Cyndy Montgomery PA-C) H/O: vasectomy History of open reduction and internal fixation (ORIF) procedure (~2015) History of urologic surgery (11/20/21) Hx of tonsillectomy S/P TURP (~2018) Social History household members: significant other and none Smoking Status: Never smoker alcohol intake: current Assessment & Plan Post-op Assessment and plan (1) S/P lumbar fusion: Assessment and Plan narrative: Dishcharge home today after PT. Multimodal pain control, f/u in office in 2 weeks as scheduled. Postoperative Procedures: Procedures Operation Date: 03/06/22 13:45 Actual Procedure Side Surgeon p L4-5 TLIF Ashley Gallegos MD Postoperative day: 2
[2022-03-08] MEDS: allopurinoL 300 MG TABLET PO (09:42)
[2022-03-08 09:43] VITALS: BP 140/80
[2022-03-08] MEDS: lisinopriL 5 MG TABLET PO (09:43)
[2022-03-08] MEDS: AMLODIPINE 5 MG TABLET 2.5 MG PO (09:43)
[2022-03-08] MEDS: ATORVASTATIN 20 MG TABLET PO (09:43)
[2022-03-08] MEDS: DOCUSATE 100 MG CAPSULE PO (09:43)
[2022-03-08] MEDS: FERROUS SULFATE 325 MG TABLET 650 MG PO (09:44)
[2022-03-08] MEDS: MULTIVITAMIN 1 TABLET 1 TAB PO (09:46)
--- NOTE | 2022-03-08 10:36 | CM.DPNOTE ---
Discharge Planning Note: Patient worked with PT this morning. Possible DC today. Ortho PA in. Plan: Possible dc with s/o today to home. Rima Cullen RN/DCP
--- NOTE | 2022-03-08 10:43 | PT.IPTN ---
Current Diagnoses Other spondylosis with radiculopathy, lumbar region (03/06/22) Spinal stenosis, lumbar region with neurogenic claudication (03/06/22) Arthrodesis status (03/06/22) Surgery Performed Operation Date: 03/06/22 13:45 Actual Procedures p L4-5 TLIF - Ashley Gallegos MD Physical Therapy Treatment Note M2 PT-IP Current Condition Start: 03/07/22 10:03 Freq: NEEDED Status: Active Protocol: Document 03/07/22 10:03 [facility] (Rec: 03/07/22 10:12 [facility] [id number]) Physical Therapy Current Condition Current Condition Evaluation Date 03/07/22 Treatment Diagnosis TLIF L4-5 M3 PT-IP Subjective Start: 03/07/22 10:03 Freq: NEEDED Status: Active Protocol: Document 03/08/22 10:27 LJ (Rec: 03/08/22 10:43 LJ [id number]) Subjective Physical Therapy Visit Type Type Treatment Note Visit Start Time 09:03 Visit Stop Time 09:39 Total Visit Minutes 36 Notes GF present for CGT Number of CAFETERIA MONITOR Visits 2 Physical Therapy Visit Comments Patient Goals go home today Therapy Pain Assessment Pain Present Pain Present Pain Reported Location Bilateral Leg Pain Management Techniques Apply Cold,Re-positioning, Timing of Activity with Medications M4 PT-IP Mobility and Gait Start: 03/07/22 10:03 Freq: NEEDED Status: Active Protocol: Document 03/08/22 10:27 MARCIA (Rec: 03/08/22 10:43 LJ [id number]) PT-Bed Mobility Assessment Rolling Type of Rolling Log Rolling,Roll to Right Level of Assist Independent,Standby Assistance Supine to Sit Supine to Sit Independent,Standby Assistance Sit to Supine Sit to Supine Independent,Standby Assistance Scooting Scooting to Edge of Bed Independent,Standby Assistance PT-Transfer Assessment Sit to and From Stand Sit to and from Stand Standby Assistance,Use of Upper Extremities Equipment Transfer Assistive Device Gait Belt,Front Wheeled Walker Orthotic/Prosthetic Devices or Brace: No Transfers Transfer Destination Chair Transfer Ability Level of Assist Standby Assistance,Use of Upper Extremities Comments Mobility Comments Pt Pt mobilizing SBA/ independently getting out of bed and transfering sit<>stand . Pt GF brought clothing which pt donned independently ( shorts) and t shirt (assist from GF). Pt then talked himself through steps to standing with GF offering cues for hand placement. Pt ambulated to platform step in hallway then back to room SBA- indep using FWW and GF in attendance. Pt returned to room, sat on bed indep, decided to sit in chair, stood indep using FWW and ambulated to chair and lowered self into chair using arm rests. No assist needed. Pt left in room with all needs within reach and GF with him. Gait Assessment Gait Gait Assistance Required: Standby Assistance Distance (Feet) 170 Assistive Devices Assistive Device Gait Belt,Front Wheeled Walker Gait Deviations General Gait Pattern Decreased Stride Length, Decreased Feet Clearance, Narrow Based Gait Factors Limiting Gait Function Factors Limiting Gait Function Decreased Activity Tolerance, Decreased Sensation,Decreased Strength,Limited Range of Motion,Pain,Poor Balance Comments Gait Comments Pt using FWW properly and beginning to normalize gait with larger steps and lifting feet for better clearance. GF providing SBA. No cues requirred. Stair Climbing Assessment Technique/Endurance Stair Climbing Direction Ascend and Descend Stair Climbing Technique Step to Step Number of Steps Climbed 1 Stair Climbing Set # Repetitions (reps) 2 Comments Stair Climbing Comments Pt lifting FWW onto platform step, stepping up forward then down backwards. No cues required. Safely performed. M5 PT-IP Objective Assessments Start: 03/07/22 10:03 Freq: NEEDED Status: Active Protocol: Document 03/07/22 10:03 [facility] (Rec: 03/07/22 10:12 [facility] [id number]) Orientation Orientation/Cognition Level of Alertness Alert Language Function Ability No Deficits Noted Safety Awareness Understands Safety Issues Memory Description No Deficits Noted Gross Range of Motion Lower Extremity ROM Assessment Within Functional Limits Strength Lower Extremity Strength Hip grossly 3+/5 Knee grossly 4-/5 Ankle 4/5 grossly M6 PT-IP Treatment Start: 03/07/22 10:03 Freq: NEEDED Status: Active Protocol: Document 03/08/22 10:27 MARCIA (Rec: 03/08/22 10:43 LJ [id number]) Physical Therapy Treatment Education Education Provided Precautions,Post-Op Packet, Safety M7 PT-IP Assessment and Plan Start: 03/07/22 10:03 Freq: NEEDED Status: Active Protocol: Document 03/08/22 10:27 MARCIA (Rec: 03/08/22 10:43 LJ [id number]) PT Summary Assessment and Plan Potential Rehabilitation Potential Good Status of Condition at Evaluation Evolving Summary Impairments Pain,ROM,Strength,Balance,Bed Mobility,Transfers,Gait, Activity Tolerance Assessment Summary Pt ambulated to stairs and back to room without LOB or rest breaks. He is mostly independent with all mobility usng FWW for ambulation. Pt talks his way through steps of getting out of bed and transfering from sitting to standing. GF very attentive and helpful. Pt has met goals and is safe to DC home with assist. Goals Bed Mobility Goal Independent Transfer Goal Independent Gait Goal Independent,Front Wheel Walker Gait Distance 150ft Other Goals up/down 1 platform step w/FWW SBA Days to Meet Goals 5 Frequency of Treatment Frequency Of Treatment Discharge Treatment Plan Physical Therapy Treatment Plan Bed Mobility Training,Transfer Training,Gait Training, Therapeutic Exercise,Balance Retraining,Post Op Education, Discharge Planning, Neuromuscular Re-ed Precautions Lumbar Precautions Log Roll,No Twisting,Limit Bending,Lifting Restriction of 10 lbs,Gait Belt above Incisional Area Weight Bearing Status Weight Bearing Status Weight Bear as Tolerated Recommendations To Nursing Amount of Assist Needed 1 Person Assist Discharge Recommendations PT Discharge Recommendations Home with Assistance, Outpatient PT Transportation Needs at Discharge Private Vehicle
--- NOTE | 2022-03-08 12:50 | PC.NURSE ---
Pt having uneventful day. Back dsg CDI Orders to D/C home HL D/C' intact Home instructions given w/understanding Pt escorted to by staff via W/C to waiting vehicle D/C in stable post op status
== END 2022-03-08 12:50 | disposition home or self-care (01) | DRG 455 ==
PROVIDERS: Admitting Provider Orthopaedic Surgery Orthopaedic Surgery of the Spine; Referring Provider Orthopaedic Surgery Orthopaedic Surgery of the Spine; Visit Provider Orthopaedic Surgery Orthopaedic Surgery of the Spine
PROC: 0SG00AJ Fusion of Lumbar Vertebral Joint with Interbody Fusion Device, Posterior Approach, Anterior Column, Open Approach (ICD-10-PCS; principal; 2022-03-06 13:45)
DX: M48.062 Spinal stenosis, lumbar region with neurogenic claudication (principal); M51.26 Other intervertebral disc displacement, lumbar region; M47.26 Other spondylosis with radiculopathy, lumbar region; D64.9 Anemia, unspecified; E78.5 Hyperlipidemia, unspecified; I10 Essential (primary) hypertension; M10.9 Gout, unspecified; Z20.822 Contact with and (suspected) exposure to COVID-19
CPT/HCPCS: 72100; 76000; 87635; 97116; 97162; 97165; 97530; 97535; C9803; C1713; C9290; J0330; J0690; J1170; J2250; J2405; J2704; J3010